=== PATIENT | male | born 1960 | race Caucasian/White ===

== ENCOUNTER 2025-03-02 05:42 | Day surgery (SDC) | payer OTHER ==
[2025-03-02] MEDS ORDERED: ALPRAZolam 0.5 MG TAB PO PRN (05:52)
[2025-03-02] MEDS ORDERED: HEPARIN SODIUM,PORCINE (1 ML) 2,500 UNIT in SODIUM CHLORIDE 0.9% 250 ML IRRIGATION PRN (05:52)
[2025-03-02] MEDS ORDERED: SODIUM CHLORIDE 0.9% 1,000 ML in EMPTY BAG 1 BAG IV SCH (05:52)
[2025-03-02] MEDS ORDERED: ALPRAZolam 0.25 MG TAB PO PRN (05:52)
[2025-03-02] MEDS ORDERED: NITROGLYCERIN SL TABS 0.4 MG TAB SUBLINGUAL PRN (05:52)
[2025-03-02] MEDS ORDERED: ASPIRIN 325 MG TAB PO STA (05:52)
[2025-03-02] MEDS ORDERED: HEPARIN SODIUM,PORCINE 10,000 UNIT in SODIUM CHLORIDE 0.9% 1,000 ML IRRIGATION PRN (05:52)
[2025-03-02 06:27] VITALS: RESP 16; TEMP 98.2
[2025-03-02] MEDS: IV FLUID CONTINUATION 1,000 ML IV ONE (07:12)
[2025-03-02] MEDS: LIDOCAINE 1% INJ 10MG/ML (20 ML MDV) SQ ONE (07:44)
[2025-03-02] MEDS: VERAPAMIL SYRINGE (5 MG/10 ML) INTRAARTER ONE (07:48)
[2025-03-02] MEDS: HEPARIN SODIUM 1,000 UN/ML (10ML VL) IVP ONE (07:49)
[2025-03-02] MEDS: MIDAZOLAM 2 MG/2 ML VIAL IVP ONE (07:49)
[2025-03-02] MEDS: fentaNYL (PF) 50 MCG/1 ML VIAL IVP ONE (07:49)
[2025-03-02] MEDS: IOPAMIDOL-370 100ML BTL INJ ONE (07:54)
--- NOTE | 2025-03-02 08:11 | P.CARDCATH ---
Description of Procedure: PROCEDURES PERFORMED: Left heart catheterization, bilateral coronary angiography, ultrasound guided arterial access INDICATION: Abnormal stress test CONSENT:I have discussed the risks, benefits and alternative therapies for the above-mentioned procedure and for both sedation/analgesia as well as necessary blood product administration, if indicated, as they pertain to this patient. The patient has indicated understanding and acceptance of the risks and procedures discussed. PROCEDURE: After the risks, benefits and alternatives of the above mentioned procedure explained in detail with the patient, informed consent was obtained. Patient was taken to the catheterization lab and prepped and draped in usual fashion. Ultrasound guidance was used to assess for arterial access. 1% lidocaine was used to anesthetize the right radial artery. A 6-Bhutanese sheath was placed in the right radial artery using modified Seldinger technique and ultrasound guidance. Left coronary angiography was performed with a 5-Bhutanese JL 3.5 catheter and right coronary angiography was performed with a 5-Bhutanese FR5 catheter in various views. A 5-Bhutanese FR5 catheter was inserted into the left ventricle and pressure measurements were obtained. The right radial sheath was removed and a TR band was placed with hemostasis achieved. The patient to lerated the procedure well. Patient was transported back to the post catheterization holding area in stable condition. Conscious Sedation: Patient was monitored under the direct supervision of myself for conscious sedation using Versed and fentanyl for a total duration of 12 minutes HEMODYNAMICS: Aorta: 132/72 LV: 131/5, LVEDP 12 SELECTIVE CORONARY ARTERIOGRAPHY: LEFT MAIN: The left main is a large caliber vessel which trifurcates into the LAD, ramus and circumflex. There is no significant stenosis. LEFT ANTERIOR DESCENDING CORONARY ARTERY: LAD is a large caliber vessel which wraps around to the apex. There is mild diffuse 20 to 30% stenosis. RAMUS INTERMEDIUS: The ramus is a small caliber vessel with mild luminal irregularities LEFT CIRCUMFLEX CORONARY ARTERY: Left circumflex is a moderate caliber vessel with in the ostial 30% stenosis and otherwise mild luminal irregularities significant stenosis. RIGHT CORONARY ARTERY: The right coronary artery is a large caliber vessel which gives off a PDA and PLV branch and is the dominant vessel. There is a patent RCA stent with 20 to 30% in-stent stenosis FINAL IMPRESSION: 1. Mild CAD as described above including 20 to 30% LAD stenosis, 30% circumflex stenosis, 20 to 30% RCA in-stent stenosis 2. Normal left sided filling pressures PLAN: 1. Aggressive risk factor modification per most recent ACC/AHA guidelines. 2. Follow-up in the office in 1-2 weeks.
[2025-03-02 19:12] VITALS: BP 147/85; PULSE 79
== END 2025-03-02 10:57 | disposition home or self-care (01) ==
LOC: CATHCVL 05:42
PROVIDERS: ATTEND Internal Medicine
DX: I25.10 Atherosclerotic heart disease of native coronary artery without angina pectoris (principal); I73.9 Peripheral vascular disease, unspecified; I65.29 Occlusion and stenosis of unspecified carotid artery; I10 Essential (primary) hypertension; E78.5 Hyperlipidemia, unspecified; Z86.73 Personal history of transient ischemic attack (TIA), and cerebral infarction without residual deficits; Z79.82 Long term (current) use of aspirin; Z79.02 Long term (current) use of antithrombotics/antiplatelets; Z79.899 Other long term (current) drug therapy
CPT/HCPCS: 93458; 99152; 84132; C1769; C1894; J2250; J2003; J1644; Q9967; J3010